=== PATIENT | female | born 1935 | race Caucasian/White ===

== ENCOUNTER 2019-10-02 22:05 | Inpatient (IN) | payer MEDICARE, BC ==
[~2019-10-02] VITALS: Ht 157.5 cm; Wt 36.4 kg
[2019-10-02 22:30] VITALS: BP 136/77
[2019-10-02] MEDS ORDERED: XANAX0.25 MG PO (22:38)
[2019-10-02] MEDS ORDERED: TENORMIN25 MG PO (22:38)
[2019-10-02] MEDS ORDERED: ZYPREXA2.5 MG PO (22:38)
[2019-10-02] MEDS ORDERED: XARELTO10 MG PO (22:41)
[2019-10-02] MEDS ORDERED: FURADANTIN25 MG/5 ML (22:42)
[2019-10-02 23:00] VITALS: BP 141/82
[2019-10-02 23:12] LABS: BASOPHILS 0.1 % (0-2); EOSINOPHILS 0.1 % (0-7); HEMATOCRIT 43.1 % (36.0-48.0); HEMOGLOBIN 13.5 g/dL (12-16); IMMATURE GRANULOCYTES 0.4 % (0-5); MCH 30.1 pg (26.0-34.0); MCHC 31.3 g/dL (31.0-37.0); MEAN PLATELET VOLUME 10.3 fL (7.4-10.4); MONOCYTES 3.2 % (2-11); NEUTROPHILS 93.2 % (40-80); PLATELET COUNT 167 10x3/uL (130-400); RBC 4.49 10x6/uL (4.00-5.40); RDW 15.3 % (11.5-14.5)
[2019-10-02 23:23] LABS: APTT 37.1 SECONDS (22.8-39.4); INR 1.63 (0.85-1.17); PROTIME 18.7 SECONDS (11.6-15.0)
[2019-10-02 23:28] LABS: CALC OSMOLALITY 291 mosm/kg (275-300); CALCIUM 9.1 mg/dL (8.5-10.1); CARBON DIOXIDE 29.2 mmol/L (21.0-32.0); CHLORIDE - SERUM 106 mmol/L (98-107); CREATININE - SERUM 0.7 mg/dL (0.6-1.3); GLUCOSE 184 mg/dL (74-106); SODIUM 143 mmol/L (136-145); UREA NITROGEN 18 mg/dL (7-18); eGFR NON AFRICAN AMERICAN 85 mL/min (90-120)
[2019-10-02 23:30] VITALS: BP 113/64
[2019-10-02 23:54] LABS: ALBUMIN 2.5 g/dL (3.4-5.0); ALKALINE PHOSPHATASE 112 U/L (46-116); ALT (SGPT) 29 U/L (10-68); BILIRUBIN - TOTAL 0.25 mg/dL (0.2-1.3); CKMB 3.2 U/L (0.0-3.6); CREATINE KINASE 74 UL (21-215); PROTEIN - SERUM 7.2 g/dL (6.4-8.2); THYROID STIMULATING HORMONE 5.26 uIU/mL (0.36-3.74); TROPONIN-I < 0.017 ng/mL (0.000-0.060)
[2019-10-02 23:59] VITALS: BP 117/60
[2019-10-03 00:55] LABS: APPEARANCE HAZY (CLEAR); BILIRUBIN NEGATIVE (NEGATIVE); COLOR YELLOW (YELLOW); GLUCOSE NEGATIVE (NEGATIVE); KETONE NEGATIVE (NEGATIVE); NITRITE POSITIVE (NEGATIVE); PROTEIN TRACE mg/dL (NEGATIVE); UROBILINOGEN NORMAL (NORMAL)
[2019-10-03 00:57] LABS: BACTERIA MANY /hpf (NEGATIVE); EPITHELIAL CELLS 0-5 /hpf (0-5); RED CELLS - URINE 0-5 /hpf (0-5)
--- NOTE | 2019-10-03 01:21 | NUR ---
RECEIVED PT TO FLOOR FROM ER VIA STRETCHER. PT NON-VERBAL. 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 LR BOLUS AND LEVAQUIN INFUSING ON ARRIVAL. NO FAMILY WITH PT AT THIS TIME. MED PER PHARMACY LINK. UNABLE TO GET LAST DOSES ON HOME MEDS. LIMITED HISTORY JUST WHAT WAS ALREADY IN COMPUTER. PT APPEARS MORE ALERT WITH INFUSION OF FLUIDS. MORE EYE OPENING AND WAKEFULNESS THAN ON FIRST ARRIVING TO FLOOR. OXYGEN SAT AT 99% ON NRB MASK. PLACED MIRAMONTES CATHETER. RECEIVED ERIC COLOR URINE. PT IS NPO. BED ALARM ON. PLACED EXTRA BLANKET AND TURNED UP HEAT IN ROOM. TEMPORAL TEMP 96.5. WILL CONTINUE TO MONITOR.
[2019-10-03 04:36] VITALS: BP 158/91; Ht 157.5 cm; Wt 36.4 kg
[2019-10-03 05:19] VITALS: BP 128/80
[2019-10-03 07:59] VITALS: BP 126/87
[2019-10-03 11:08] LABS: BASOPHILS 0.2 % (0-2); EOSINOPHILS 0.1 % (0-7); HEMATOCRIT 38.6 % (36.0-48.0); HEMOGLOBIN 11.9 g/dL (12-16); IMMATURE GRANULOCYTES 0.2 % (0-5); LYMPHOCYTES 4.6 % (15-50); MCH 29.2 pg (26.0-34.0); MCHC 30.8 g/dL (31.0-37.0); MCV 94.6 fL (80.0-100.0); MEAN PLATELET VOLUME 10.5 fL (7.4-10.4); MONOCYTES 3.2 % (2-11); NEUTROPHILS 91.7 % (40-80); PLATELET COUNT 160 10x3/uL (130-400); RBC 4.08 10x6/uL (4.00-5.40); RDW 14.8 % (11.5-14.5)
[2019-10-03 11:09] LABS: WBC 10.1 10x3/uL (4.8-10.8)
[2019-10-03 12:50] VITALS: BP 130/86
--- NOTE | 2019-10-03 14:00 | NUR ---
PATIENT IV AND MIRAMONTES REMOVED AT THIS TIME. IV CATH TIP INTACT. PATIENT TOLERATED WITH SMALL AMOUNT OF PAIN. CALL LIGHT WITHIN REACH. AND FOOD STAND MANAGER TO DRESS PATIENT.
--- NOTE | 2019-10-03 14:20 | NUR ---
PATIENT DC GIVEN BY ALLI KAY RN.
[2019-10-03] MEDS ORDERED: FLORAJEN3 CAPS460 MG PO (14:54)
[2019-10-03] MEDS ORDERED: LEVOFLOXACIN500 MG PO (14:55)
--- NOTE | 2019-10-03 15:26 | NUR ---
OT NOTE: PT COMPLETED UE PROM TOLERATED. THANK YOU, LASHAWN GONZALEZ
[2019-10-03 16:08] VITALS: BP 121/101
--- NOTE | 2019-10-05 11:51 | MORECARE ---
CASE MANAGEMENT DISCHARGE SUMMARY PATIENT: GABE CHAVEZ UNIT: [id number] ADM DATE: 10/02/19 AGE: 83 : 35 SEX: F ROOM/BED: D.2224 AUTHOR: ALYSE PANDYA PHYSICIAN: REFERRING PHYSICIAN: TAINA MOE MD DATE OF SERVICE: 10/05/19 Discharge Plan Patient Name: GABE CHAVEZ Facility: [facility]:[place] : 1935 Planned Disposition: Anticipated Discharge Date: Discharge Date: 10/03/2019 Expected LOS: 0 Initial Reviewer: [email or web address] Initial Review Date: 10/05/2019 Generated: 10/05/19 12:51 pm Patient Name: GABE CHAVEZ Page [id number] at 1151 All edits/amendments must be made on the electronic document DICTATION DATE: 10/05/19 1151 [employer]ENC[employer] DEPARTMENT CHAIR: CAM 10/05/19 1151 RPT#: [id number] DC DATE:10/03/19 STATUS: DIS IN [facility] [address] [place] [address] END OF REPORT
== END 2019-10-03 16:38 | disposition home or self-care (01) | DRG 177 ==
LOC: D.ER 22:05 → EDBD 22:05 → D.MS 23:54
PROVIDERS: Emergency Medicine; ADMIT Internal Medicine Nephrology; ATTEND Internal Medicine Nephrology
DX: J69.0 Pneumonitis due to inhalation of food and vomit (principal); J96.02 Acute respiratory failure with hypercapnia; E43 Unspecified severe protein-calorie malnutrition; J96.01 Acute respiratory failure with hypoxia; N39.0 Urinary tract infection, site not specified; E87.2 Acidosis; I48.20 Chronic atrial fibrillation, unspecified; Z68.1 Body mass index [BMI] 19.9 or less, adult; E11.65 Type 2 diabetes mellitus with hyperglycemia; Z87.440 Personal history of urinary (tract) infections; G30.9 Alzheimer's disease, unspecified; F02.80 Dementia in other diseases classified elsewhere, unspecified severity, without behavioral disturbance, psychotic disturbance, mood disturbance, and anxiety; E86.0 Dehydration; R11.2 Nausea with vomiting, unspecified; R19.7 Diarrhea, unspecified; T68.XXXA Hypothermia, initial encounter; Z66 Do not resuscitate